=== PATIENT | female | born 1970 | race Caucasian/White ===

== ENCOUNTER → 2024-06-09 14:12 | Outpatient (REF) | payer OTHER, SELFPAY | LOC: RAD 14:12 | PROVIDERS: ATTENDING PHYSICIAN Physician Assistant Surgical; FAMILY PHYSICIAN Family Medicine | DX: M46.1 Sacroiliitis, not elsewhere classified (principal) | CPT/HCPCS: 72220 ==

== ENCOUNTER → 2025-02-22 18:43 | Outpatient (REF) | payer OTHER, SELFPAY | LOC: WDC 18:43 | PROVIDERS: ATTENDING PHYSICIAN Family Medicine | DX: Z12.31 Encounter for screening mammogram for malignant neoplasm of breast (principal) | CPT/HCPCS: 77063; 77067 ==